=== PATIENT | male | born 1990 | race Asian ===

== ENCOUNTER 2018-03-25 00:45 | Emergency (ER) | payer BC, OTHER | END 2018-03-25 03:09 | disposition home or self-care (01) | LOC: FTE 00:45 | DX: M54.5 Low back pain (principal) | CPT/HCPCS: 99282 ==

== ENCOUNTER → 2019-01-09 | Emergency (ER) | payer OTHER ==
[2019-01-09] MEDS: ACETAMINOPHEN 500 MG TAB PO (16:01)
[2019-01-09 16:18] LABS: ADD MAN DIFF? NO
[2019-01-09 16:21] LABS: BASOPHIL # 0.1 10^3/ul (0.0-0.1); BASOPHILS % 0.6 % (0.0-2.0); EOSINOPHILS # 0.2 10^3/ul (0.0-0.5); EOSINOPHILS % 1.5 % (0.0-7.0); HEMATOCRIT 46.6 % (42.0-52.0); HEMOGLOBIN 15.5 g/dl (14.0-18.0); LYMPHOCYTES # 2.8 10^3/ul (0.8-2.9); LYMPHOCYTES % 23.7 % (15.0-51.0); MEAN CORPUSCULAR HEMOGLOBIN 27.6 pg (29.0-33.0); MEAN CORPUSCULAR HGB CONC 33.3 g/dl (32.0-37.0); MEAN CORPUSCULAR VOLUME 82.9 fl (82.0-101.0); MEAN PLATELET VOLUME 9.6 fl (7.4-10.4); MONOCYTE # 1.1 10^3/ul (0.3-0.9); MONOCYTES % 9.4 % (0.0-11.0); NEUTROPHIL # 7.5 10^3/ul (1.6-7.5); NEUTROPHILS % 63.7 % (39.0-77.0); PLATELET COUNT 366 10^3/UL (140-415); RED BLOOD COUNT 5.62 10^6/ul (4.70-6.10); RED CELL DISTRIBUTION WIDTH 12.1 % (11.5-14.5)
[2019-01-09 16:21] LABS: WHITE BLOOD COUNT 11.8 10^3/ul (4.8-10.8)
[2019-01-09 16:26] LABS: ADD UMIC YES; UR ASCORBIC ACID NEGATIVE (NEGATIVE); UR BILIRUBIN (Dip) NEGATIVE (NEGATIVE); UR BLOOD (Dip) 1+ mg/dL (NEGATIVE); UR CLARITY CLEAR (CLEAR); UR COLOR YELLOW (YELLOW); UR GLUCOSE (Dip) NEGATIVE (NEGATIVE); UR KETONES (Dip) NEGATIVE (NEGATIVE); UR LEUKOCYTE ESTERASE (Dip) NEGATIVE Leu/ul (NEGATIVE); UR NITRITE (Dip) NEGATIVE (NEGATIVE); UR RBC 1 /HPF (0-5); UR TOTAL PROTEIN (Dip) NEGATIVE (NEGATIVE); UR UROBILINOGEN (Dip) NEGATIVE (NEGATIVE); UR WBC 1 /HPF (0-5)
[2019-01-09 16:38] LABS: ANION GAP 10 (5-13); BLOOD UREA NITROGEN 11 mg/dl (7-20); CALCIUM 9.6 mg/dl (8.4-10.2); CARBON DIOXIDE 29 mmol/L (21-31); CHLORIDE 102 mmol/L (97-110); CREATININE 0.83 mg/dl (0.61-1.24); Estimated GFR > 60 mL/min (>60); GLUCOSE 93 mg/dl (70-220); SODIUM 141 mmol/L (135-144)
[2019-01-09 16:50] LABS: TROPONIN-I < 0.012 ng/ml (0.000-0.120)
[2019-01-09] MEDS: KETOROLAC 30 MG INJ IM (17:45)
== END | disposition home or self-care (01) ==
LOC: E/R 15:06
DX: S20.211A Contusion of right front wall of thorax, initial encounter (principal); V49.40XA Driver injured in collision with unspecified motor vehicles in traffic accident, initial encounter
CPT/HCPCS: 71045; 80048; 81001; 84484; 85025; 96372; 99284-25